=== PATIENT | female | born 1965 | race Two or more races ===

== ENCOUNTER 2023-05-27 16:55 | Emergency (ER) | payer MEDICAID ==
[~2023-05-27] VITALS: Ht 157.5 cm; Wt 86.0 kg
[2023-05-27 17:58] LABS: BASOPHILS # (AUTO) 0.1 X10'3 (0-0.2); BASOPHILS % (AUTO) 0.8 % (0-1); EOSINOPHILS # (AUTO) 0.3 X10'3 (0-0.9); EOSINOPHILS % (AUTO) 2.7 % (0-6); HEMATOCRIT 36.6 % (35.0-45.0); LYMPHOCYTES # (AUTO) 3.4 X10'3 (1.1-4.8); LYMPHOCYTES % (AUTO) 35.6 % (21-51); MEAN CORPUSCULAR HEMOGLOBIN 27.1 PG (27.0-31.0); MEAN CORPUSCULAR HGB CONC 32.8 g/dL (33.0-36.5); MEAN CORPUSCULAR VOLUME 82.6 FL (78-98); MONOCYTES % (AUTO) 10.7 % (2-12); NEUTROPHILS # (AUTO) 4.8 X10'3 (1.8-7.7); NEUTROPHILS % (AUTO) 50.2 % (42-75); PLATELET COUNT 317 X10'3 (140-440); RED BLOOD COUNT 4.43 X10'6 (4.20-5.60); WHITE BLOOD COUNT 9.6 X10'3 (4.5-11.0)
[2023-05-27 18:12] LABS: ALBUMIN 3.5 G/DL (3.4-5.0); ANION GAP 12 (8-16); BLOOD UREA NITROGEN 21 MG/DL (7-18); BUN/CREATININE RATIO 16.7 (10.0-20.0); CALCIUM 9.6 MG/DL (8.5-10.1); CHLORIDE 99 MMOL/L (99-107); CREATININE 1.26 MG/DL (0.40-0.90); GLUCOSE 86 MG/DL (70-104); POTASSIUM 4.3 MMOL/L (3.5-5.1); PRO BRAIN NATRIURETIC PEPTIDE 76 PG/ML (0-125); SODIUM 136 MMOL/L (135-145); TOTAL CARBON DIOXIDE 25.1 MMOL/L (24-32); eCRCL 39 ML/MIN; eGFR 44 ML/MIN
[2023-05-27 23:24] VITALS: TEMP 98.1
[2023-05-27] MEDS ORDERED: METF-436 PO (23:56)
[2023-05-27] MEDS ORDERED: ONDA4TAB12 PO (23:56)
[2023-05-27] MEDS ORDERED: AZIT-164 PO (23:56)
[2023-05-27] MEDS ORDERED: BENZ-38 PO (23:56)
[2023-05-28] MEDS: benzonatate 100mg capsule PO ONE (00:02)
[2023-05-28] MEDS: acetaminophen 325mg tablet PO ONE (00:02)
[2023-05-28] MEDS: azithromycin 250mg tablet PO ONE (00:02)
[2023-05-28] MEDS: ondansetron 4mg rapidly disintigrating tab PO ONE (00:02)
[2023-05-28 00:38] VITALS: BP 136/73; PULSE 77; RESP 18; O2SAT 98
== END 2023-05-28 01:10 | disposition home or self-care (01) ==
LOC: ER 16:57
DX: R05.9 Cough, unspecified (principal); E78.00 Pure hypercholesterolemia, unspecified; E11.9 Type 2 diabetes mellitus without complications; Z79.2 Long term (current) use of antibiotics; Z79.899 Other long term (current) drug therapy
CPT/HCPCS: 36415; 71045; 80048; 83880; 84484; 85025; 93005; 99285